=== PATIENT | female | born 1970 ===

== ENCOUNTER 2024-11-28 15:21 | Emergency (ER) | payer OTHER ==
[~2024-11-28] VITALS: Ht 154.9 cm; Wt 56.7 kg
[2024-11-28 15:47] VITALS: BP 126/77
== END 2024-11-28 16:20 | disposition home or self-care (01) ==
LOC: ER 15:21
DX: S90.31XA Contusion of right foot, initial encounter (principal); W20.8XXA Other cause of strike by thrown, projected or falling object, initial encounter
CPT/HCPCS: 73630; 99283-25